=== PATIENT | male | born 1950 | race American Indian/Alaskan Native ===

== ENCOUNTER 2017-08-31 08:28 | Emergency (ER) | payer MEDICAID, MEDICARE ==
[2017-08-31] MEDS ORDERED: Sodium Chloride 0.9% 500 ML IV STA ×2 (09:22→13:22)
--- NOTE | 2017-08-31 09:23 | ED PDOC ---
Arrival/HPI - General Chief Complaint: Cough, Cold, Congestion Time Seen by Provider: 08/31/17 09:17 Historian: Patient - History of Present Illness Narrative History of Present Illness (Text): 08/31/17 09:17 67 y/o male, pmh including htn/dm/anemia with ckd, nkda, c/o coughing/shortness of breath for the past 2 days with no recent traveling. Pt. stated that he has been coughing with wheezing upon exertion for the past 2 days, admits chest pain , noted to have low grade temp fever today in the ER, admits fatigue, no night sweat, no rash, numbness or tingling, no neck stiffness, no palpitation, no other medical or psychological complaints. Past Medical History - Provider Review Nursing Documentation Reviewed: Yes - Infectious Disease Hx of Infectious Diseases: None - Cardiac Hx Hypertension: Yes - Endocrine/Metabolic Hx Diabetes Mellitus Type 2: Yes - Psychiatric Hx Substance Use: No Family/Social History - Physician Review Nursing Documentation Reviewed: Yes Family/Social History: Unknown Family HX Smoking Status: Light Smoker < 10 Cigarettes Daily Hx Alcohol Use: No Hx Substance Use: No Allergies/Home Meds Allergies/Adverse Reactions: Allergies No Known Allergies Allergy (Verified 08/31/17 15:49) Home Medications: Home Meds Medication Instructions Recorded Confirmed Alpha Lipoic Acid 100 mg PO DAILY 08/31/17 08/31/17 Aspirin [Ecotrin] 81 mg PO DAILY 08/31/17 08/31/17 DULoxetine [Cymbalta] 60 mg PO DAILY 08/31/17 08/31/17 Folic Acid [Folic Acid] 1 mg PO DAILY 08/31/17 08/31/17 GlipiZIDE [Glucotrol] 10 mg PO DAILY 08/31/17 08/31/17 Iron/Folic Acid/B12/C/Docusate 1 mg pe PO DAILY 08/31/17 08/31/17 [Ferraplus 90 Tablet] Levomefolate/B6/B12/Algal Oil 1 cap PO DAILY 08/31/17 08/31/17 [Metanx Capsule] Linagliptin [Tradjenta] 5 mg PO DAILY 08/31/17 08/31/17 Metoprolol Shepard/Hydrochlorothiaz 100 mg PO DAILY 08/31/17 08/31/17 [Metoprolol ER-Hctz 100-12.5 mg] amLODIPine [Norvasc] 10 mg PO DAILY 08/31/17 08/31/17 hydrALAZINE [Apresoline] 10 mg PO TID 08/31/17 08/31/17 metFORMIN [glucOPHAGE] 500 mg PO DAILY 08/31/17 08/31/17 Review of Systems - Review of Systems Constitutional: Fatigue, Fevers Eyes: absent: Vision Changes ENT: absent: Hearing Changes Respiratory: SOB, Cough, Sputum, Wheezing Cardiovascular: Chest Pain Gastrointestinal: absent: Abdominal Pain, Nausea, Vomiting Musculoskeletal: absent: Arthralgias, Back Pain, Myalgias Skin: absent: Rash, Pruritis Neurological: absent: Headache, Dizziness Psychiatric: absent: Anxiety, Depression Physical Exam Vital Signs Reviewed: Yes Vital Signs Temp Pulse Resp BP Pulse Ox 08/31/17 13:56 117 H 19 169/75 H 98 08/31/17 13:16 113 H 18 140/64 98 08/31/17 12:15 99.0 F 122 H 19 133/50 L 100 08/31/17 10:01 100.3 F H 112 H 18 163/80 H 100 08/31/17 08:56 98.4 F 107 H 20 166/93 H 100 08/31/17 08:47 100 F H 118 H 19 162/75 H 94 L Blood Pressure: Hypertensive Pulse: Tachycardic Respiratory Rate: Normal Appearance: Positive for: Well-Appearing, Non-Toxic, Ill-Appearing Pain Distress: Mild Mental Status: Positive for: Alert and Oriented X 3 - Systems Exam Head: Present: Atraumatic, Normocephalic Pupils: Present: PERRL Extroacular Muscles: Present: EOMI Conjunctiva: Present: Normal Ears: Present: NORMAL TM, Normal Canal. No: Erythema Mouth: Present: Moist Mucous Membranes Pharnyx: No: ERYTHEMA, EXUDATE, TONSILS ENLARGED, Uvular Deviation Nose (Internal): Present: Normal Inspection, No Active Bleeding. No: Rhinorrhea , Septal Hematoma, Epistaxis Neck: Present: Normal Range of Motion, Trachea Midline. No: Meningeal Signs, MIDLINE TENDERNESS, Lymphadenopathy Respiratory/Chest: Present: Wheezes, Decreased Breath Sounds, Rales, Rhonchi. No: Respiratory Distress, Accessory Muscle Use, Retracting, Tachypneic, Tender to Palpation Cardiovascular: Present: Regular Rate and Rhythm, Normal S1, S2, Other (no pedal edema). No: Murmurs Abdomen: Present: Normal Bowel Sounds. No: Tenderness, Distention, Peritoneal Signs, Rebound, Guarding Back: Present: Normal Inspection Upper Extremity: Present: Normal Inspection. No: Cyanosis, Edema Lower Extremity: Present: Normal Inspection. No: Edema Neurological: Present: GCS=15, Speech Normal, Motor Func Grossly Intact, Gait Normal, Memory Normal Skin: Present: Warm, Dry, Normal Color. 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 08/31/17 11:41 -EKG: Sinus Tachycardia @ 107 BPM, no ST elevation or depression, no T wave inversion. -Chest xray: show mild infiltrate noted, IV rocephine and azithromycin ordered -Labs show hgb 9.7 (chronic anemia), BUN 28/Creatine 1.8 (chronic?), Mg 1.5 ( magnesium IV 1gm ordered) -UA show no UTI -Rapid flu is positive (tamiflu ordered) -Troponin is negative -BNP is mildly elevated 502 with no previous comparison, no visible signs of CHF at this point -VBG lactic acid is 2.1 -Pt. with multiple comorbidities and multiple abnormalities on this ER visit and radiology study, will need admission but he is currently declining, will give him additional time to think and talk to his at the bed side. 08/31/17 13:00 -I reassess the patient again, BP is stable, comfortable, wheezing resolved, offer admission again and he declined, still receiving antibiotic, pending for the son to arrive, on the bed side. -Lactic acid is above 5 from 2.1 (will repeat), 2000cc of IV ordered for the patient. 08/31/17 14:05 -Lactic acid repeated and confirmed elevated, this is septic shock, pt. is still aox4, still declining continue the care. AMA ER The patient refuses to stay in the Emergency Room (ER) to continue the care and wishes to leave the emergency department against my medical advice. Patient was told that staying in the ER is necessary and a full explanation of the reasons why was given, and understood by the patient with alert and oriented x4. The risk of leaving were explained in laymans term and including but not limited to sepsis, bacteremia, abscess, infection, organ failure, pain, worsening of condition, permanent disability and from an undiagnosed or untreated condition. Patient verbalized and able to repeat back the risks and benefits of the risk of leaving against medical advice. The patient accepts these risks, and is in my judgment is competent and capable of understanding the clinical situation and explanation of the risk of leaving. Patient was given the opportunity to ask questions and change mind. The patient was instructed regarding the best care for the present symptoms, and to follow up as soon as possible with the primary care doctor including specialist or return to the emergency department at an y time for continuing care. you signs out against medical advice. you are absolutely advice to stay. you are given levaquin and tamiflu with tylenol but this is not the complete care and not stable to be discharge home. Please take care of your personal task you said you have to take care of and return to the ER as soon as possible. You are leaving with your . -Dr. Bailey awared of the AMA on this patient with the repeated lab work, agreed this patient can sign out ama. Reassessment Condition: Re-examined, Improving,but remains with symptoms - Critical Care Critical Care Minutes: 30 minutes Critical Care Time: Unstable Narrative Critical Care (Text): 08/31/17 11:40 sepsis, wheezing and rhonchi with crackles bilateral chest, continue nebulizer solution and steroid, IV antibiotic and tamiflu. - Lab Interpretations Lab Results: 08/31/17 09:30 08/31/17 09:30 Lab Results 08/31/17 13:39: pO2 52, VBG pH 7.13 L*, VBG pCO2 52.0, VBG HCO3 17.3 L, VBG Total CO2 18.9 L, VBG O2 Sat (Calc) 82.4 H, VBG Base Excess -12.0 L, VBG Potassium 4.2, Sodium 141.0, Chloride 104.0, Glucose 425 H*, Lactate 6.5 H*, FiO2 21.0, Venous Blood Potassium 4.2 08/31/17 12:43: pO2 53, VBG pH 7.17 L*, VBG pCO2 50.0, VBG HCO3 18.2 L, VBG Total CO2 19.7 L, VBG O2 Sat (Calc) 84.7 H, VBG Base Excess -10.4 L, VBG Potassium 3.3 L, Sodium 141.0, Chloride 102.0, Glucose 367 H, Lactate 5.5 H*, FiO2 21.0, Venous Blood Potassium 3.3 L 08/31/17 12:38: POC Glucose (mg/dL) 311 H 08/31/17 10:28: Influenza Typ A,B (EIA) Pos for influenza a H 08/31/17 09:43: Urine Color Yellow, Urine Appearance Clear, Urine pH 6.0, Ur Specific Weiser 1.025, Urine Protein 100 H, Urine Glucose (UA) >=1000, Urine Ketones 15 H, Urine Blood Moderate H, Urine Nitrate Negative, Urine Bilirubin Negative, Urine Urobilinogen 0.2, Ur Leukocyte Esterase Negative, Urine RBC 2 - 5, Urine WBC 0 - 2, Ur Epithelial Cells 0 - 2, Coarse Granular Casts Trace H 08/31/17 09:30: WBC 10.7, RBC 4.34, Hgb 9.7 L, Hct 30.4 L, MCV 70.0 L, MCH 22.4 L, MCHC 31.9, RDW 15.7 H, Plt Count 210, MPV 10.3, Gran % 78.5 H, Lymph % (Auto ) 7.5 L, Jessamine % (Auto) 13.9 H, Eos % (Auto) 0.0 L, Baso % (Auto) 0.1, Gran # 8.40 H, Lymph # 0.8 L, Jessamine # 1.5 H, Eos # 0.0, Baso # 0.01 08/31/17 09:30: Sodium 139, Chloride 100, Potassium 3.9, Carbon Dioxide 25, Anion Gap 18, BUN 28 H, Creatinine 1.8 H, Est GFR ( Amer) 46, Est GFR ( Non-Af Amer) 38, Random Glucose 286 H, Calcium 9.4, Magnesium 1.5 L, Total Bilirubin 0.5, AST 75 H, ALT 57 H, Alkaline Phosphatase 67, Lactate Dehydrogenase 675, Total Creatine Kinase 257 H, CK-MB (CK-2) 1.4, CK-MB (CK-2) % Cancelled, Troponin I 0.02, NT-Pro-B Natriuret Pep 502 H, Total Protein 8.3, Albumin 4.2, Globulin 4.1, Albumin/Globulin Ratio 1.0 L 08/31/17 09:30: pO2 33, VBG pH 7.31 L, VBG pCO2 54.0, VBG HCO3 27.2, VBG Total CO2 28.9 H, VBG O2 Sat (Calc) 64.4, VBG Base Excess 0.0, VBG Potassium 4.9, Sodium 138.0, Chloride 100.0, Glucose 295 H, Lactate 2.1, FiO2 21.0, Venous Blood Potassium 4.9 08/31/17 09:22: POC Glucose (mg/dL) 257 H I have reviewed the lab results: Yes - RAD Interpretation Radiology Orders: 08/31/17 09:32 CHEST TWO VIEWS (PA/LAT) [RAD] Stat +patchy infiltrate on the left lower lobe. 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 Interpreted by ED Physician: Yes Type: 12 lead EKG - Medication Orders Current Medication Orders: Discontinued Medications Acetaminophen (Tylenol 325mg Tab) 650 mg PO STAT STA Stop: 08/31/17 09:23 Last Admin: 08/31/17 09:33 Dose: 650 mg [facility] Pain/Vitals Document 08/31/17 09:33 LA (Rec: 08/31/17 09:37 JEFFREY [id number]) Pain Reassessment Is This A Pain ReAssessment? No Sleep Is patient sleeping during reassessment? No Presence of Pain Presence of Pain Yes Pain Scale Used Pain Scale Used Numeric Location Pain Location Body Academic Manager Description Intermittent Re-Assess: [facility] Pain/Vitals Document 08/31/17 10:33 LA (Rec: 08/31/17 11:11 JEFFREY [id number]) Pain Reassessment Is This A Pain ReAssessment? Yes Presence of Pain Presence of Pain No Albuterol/Ipratropium (Duoneb 3 Mg/0.5 Mg (3 Ml) Ud) 3 ml IH Q15M CODY Stop: 08/31/17 10:01 Last Admin: 08/31/17 11:10 Dose: 3 ml Sodium Chloride (Sodium Chloride 0.9%) 1,000 mls @ 250 mls/hr IV .Q4H CODY Last Admin: 08/31/17 09:38 Dose: 250 mls/hr eMAR Start Stop Document 08/31/17 09:38 LA (Rec: 08/31/17 09:38 LA [id number]) Intravenous Solution Start Date 08/31/17 Start Time 09:38 Sodium Chloride (Sodium Chloride 0.9%) 500 mls @ 999 mls/hr IV .Q31M STA Stop: 08/31/17 09:52 Ceftriaxone Sodium (Rocephin 1 Gram Ivpb) 1 gm in 100 mls @ 200 mls/hr IVPB STAT STA PRN Reason: Protocol Stop: 08/31/17 10:25 Last Admin: 08/31/17 10:16 Dose: 200 mls/hr eMAR Start Stop Document 08/31/17 10:16 LA (Rec: 08/31/17 10:16 LA [id number]) Intravenous Solution Start Date 08/31/17 Start Time 10:16 End Date 08/31/17 End time 10:46 Total Infusion Time 30 Azithromycin (Zithromax 500mg In Ns) 500 mg in 250 mls @ 167 mls/hr IVPB STAT STA PRN Reason: Protocol Stop: 08/31/17 11:25 Last Admin: 08/31/17 11:05 Dose: 167 mls/hr eMAR Start Stop Document 08/31/17 11:05 LA (Rec: 08/31/17 11:08 LA [id number]) Intravenous Solution Start Date 08/31/17 Start Time 11:08 Sodium Chloride (Sodium Chloride 0.9%) 1,000 mls @ 75 mls/hr IV .[id number] [facility] Last Admin: 08/31/17 11:11 Dose: 75 mls/hr eMAR Start Stop Document 08/31/17 11:11 LA (Rec: 08/31/17 11:11 LA [id number]) Intravenous Solution Start Date 08/31/17 Start Time 11:11 Magnesium Sulfate/Dextrose (Magnesium Sulfate 1 Gm/100 Ml D5w) 1 gm in 100 mls @ 100 mls/hr IVPB ONCE ONE Stop: 08/31/17 12:35 Last Admin: 08/31/17 12:48 Dose: 100 mls/hr eMAR Start Stop Document 08/31/17 12:48 JEFFREY (Rec: 08/31/17 12:49 LA [id number]) Intravenous Solution Start Date 08/31/17 Start Time 12:48 End Date 08/31/17 End time 13:48 Total Infusion Time 60 Sodium Chloride (Sodium Chloride 0.9%) 1,000 mls @ 1,000 mls/hr IV .Q1H CODY Sodium Chloride (Sodium Chloride 0.9%) 500 mls @ 999 mls/hr IV .Q31M STA Stop: 08/31/17 13:52 Methylprednisolone (Solu-Medrol) 125 mg IVP STAT STA Stop: 08/31/17 09:24 Last Admin: 08/31/17 09:33 Dose: 125 mg IVP Administration Document 08/31/17 09:33 JEFFREY (Rec: 08/31/17 09:33 LA [id number]) Charges for Administration # of IVP Administrations 1 Oseltamivir Phosphate (Tamiflu Cap) 75 mg PO STAT STA PRN Reason: Protocol Stop: 08/31/17 11:33 Last Admin: 08/31/17 11:38 Dose: 75 mg - PA / ASPHALT MIXER / Resident Statement / has reviewed & agrees with the documentation as recorded. Disposition/Present on Arrival - Present on Arrival Any Indicators Present on Arrival: No History of DVT/PE: No History of Uncontrolled Diabetes: No Urinary Catheter: No History of Decub. Ulcer: No History Surgical Site Infection Following: None - Disposition Have Diagnosis and Disposition been Completed?: Yes Diagnosis: Sepsis, Influenza, Chronic anemia, Dehydration, Elevated brain natriuretic peptide (BNP) level, Non compliance w medication regimen Disposition: AGAINST MEDICAL ADVICE Disposition Time: 14:08 Patient Problems: Current Active Problems Problem Status Onset Sepsis Acute Influenza Acute Chronic anemia Acute Dehydration Acute Elevated brain natriuretic peptide (BNP) level Acute Condition: GUARDED Discharge Instructions (ExitCare): Sepsis (ED) Additional Instructions: you signs out against medical advice. you are absolutely advice to stay. you are given levaquin and tamiflu with tylenol but this is not the complete care and not stable to be discharge home. Please take care of your personal task you said you have to take care of and return to the ER as soon as possible. You are leaving with your . Prescriptions: Albuterol HFA [Ventolin HFA 90 mcg/actuation (8 g)] 2 puff IH [id number] #1 in Acetaminophen [Tylenol 325mg tab] 2 tab PO QID PRN #30 tab PRN Reason: Other levoFLOXacin [Levaquin] 750 mg PO DAILY #5 tab Oseltamivir Phosphate [Tamiflu] 75 mg PO BID #10 capsule Prednisone 50 mg PO DAILY #5 tablet Referrals: Nneka Salguero DO [Primary Care Provider] - Follow up with primary Forms: [employer] (Swedish)
[2017-08-31] MEDS ORDERED: Sodium Chloride 0.9% 1,000 ML IV SCH ×3 (09:30→13:22)
[2017-08-31] MEDS: Albuterol-Ipratrop 3 mg / 0.5 (3 ml) UD IH SCH ×3 (09:33→11:10)
[2017-08-31 09:51] LABS: VENOUS BLOOD GAS PO2 33 mm/Hg (30-55); VENOUS BLOOD PH 7.31 (7.32-7.43)
[2017-08-31 09:56] LABS: BASO # 0.01 K/mm3 (0.0-2.0); BASO % 0.1 % (0.0-3.0); GRAN # 8.4 (1.4-6.5); GRAN % 78.5 % (50.0-68.0); HEMOGLOBIN 9.7 g/dL (14.0-18.0); LYMPH # 0.8 (1.2-3.4); LYMPH % 7.5 % (22.0-35.0); MEAN CORPUSCULAR HEMOGLOBIN 22.4 pg (25.0-35.0); MEAN CORPUSCULAR HGB CONC 31.9 g/dl (31.0-37.0); MEAN PLATELET VOLUME 10.3 fl (7.0-11.0); MONO # 1.5 (0.1-0.6); MONO % 13.9 % (1.0-6.0); RBC 4.34 10^6/uL (3.5-6.1); RED CELL DISTRIBUTION WIDTH 15.7 % (11.5-14.5); WHITE BLOOD COUNT 10.7 10^3/ul (4.5-11.0)
[2017-08-31] MEDS ORDERED: cefTRIAXone 1 gm 1 GM/100 ML BAG IVPB STA (09:56)
[2017-08-31] MEDS ORDERED: Azithromycin 500MG/NS 250ml 500 MG/250 ML BAG IVPB STA (09:56)
[2017-08-31 09:57] LABS: URINE BILIRUBIN NEGATIVE (NEGATIVE); URINE BLOOD MODERATE (NEGATIVE); URINE GLUCOSE (UA) >=1000 mg/dL (NEGATIVE); URINE LEUKOCYTE ESTERASE NEGATIVE Leu/uL (NEGATIVE); URINE NITRATE NEGATIVE (NEGATIVE); URINE PROTEIN 100 mg/dL (<30 mg/dL); URINE UROBILINOGEN 0.2 E.U./dL (<1 E.U./dL)
[2017-08-31 09:59] LABS: URINE APPEARANCE CLEAR (CLEAR); URINE COLOR YELLOW (YELLOW)
[2017-08-31 10:32] LABS: URINE EPITHELIAL CELLS 0 - 2 /hpf (0-5); URINE WBC 0 - 2 /hpf (0-6)
[2017-08-31 10:33] LABS: URINE COARSE GRANULAR CAST TRACE /hpf (0-2)
[2017-08-31 10:40] LABS: ALBUMIN 4.2 g/dL (3.0-4.8); CALCIUM 9.4 mg/dL (8.4-10.5); MAGNESIUM 1.5 mg/dL (1.7-2.2)
[2017-08-31 10:42] LABS: TROPONIN I 0.02 ng/mL
[2017-08-31 10:48] LABS: CK-MB 1.4 ng/mL (0.0-3.6)
[2017-08-31] MEDS ORDERED: Magnesium Sulfate 1 gm in D5W 1 GM/100 ML BAG IVPB ONE (11:36)
[2017-08-31 12:23] VITALS: TEMP 99
[2017-08-31 12:49] LABS: VENOUS BLOOD GAS BASE EXCESS -10.4 mmol/L (0.0-2.0); VENOUS BLOOD GAS PO2 53 mm/Hg (30-55); VENOUS BLOOD PH 7.17 (7.32-7.43)
--- NOTE | 2017-08-31 12:55 | RAD ---
HISTORY: cough and fever x 2 days. COMPARISON: No prior. TECHNIQUE: Chest PA and lateral FINDINGS: LUNGS: Minimal patchy infiltrate left lower lobe PLEURA: No significant pleural effusion identified. No pneumothorax apparent. CARDIOVASCULAR: Normal. OSSEOUS STRUCTURES: No significant abnormalities. VISUALIZED UPPER ABDOMEN: Normal. OTHER FINDINGS: None. IMPRESSION: Minimal patchy infiltrate left lower lobe
[2017-08-31 13:19] VITALS: O2SAT 98
[2017-08-31 13:48] LABS: VENOUS BLOOD GAS PO2 52 mm/Hg (30-55); VENOUS BLOOD PH 7.13 (7.32-7.43)
[2017-08-31 14:05] VITALS: BP 169/75; PULSE 117; RESP 19
--- NOTE | 2017-08-31 15:36 | CARD ---
APPROVED REPORT EKG Measurement Heart [id number] <Conclusion> Sinus tachycardia Otherwise normal ECG
== END 2017-08-31 14:22 | disposition left against medical advice (07) ==
LOC: ED 08:28
DX: J11.1 Influenza due to unidentified influenza virus with other respiratory manifestations (principal); A41.9 Sepsis, unspecified organism; D64.9 Anemia, unspecified; E86.0 Dehydration; R79.89 Other specified abnormal findings of blood chemistry; Z91.14 Patient's other noncompliance with medication regimen; I10 Essential (primary) hypertension; E11.9 Type 2 diabetes mellitus without complications; F17.210 Nicotine dependence, cigarettes, uncomplicated
CPT/HCPCS: 71046; 80053; 81001; 82550; 82553; 82803; 82948; 83615; 83735; 83880; 84484; 85025; 87040; 87804; 93005; 96365; 96367; 96375; 99285; J0456; J0696; J2930; J3475; J7040